=== PATIENT | male | born 1970 | race Two or more races ===

== ENCOUNTER 2024-06-30 09:42 | Emergency (ER) | payer OTHER, SELFPAY ==
[~2024-06-30] VITALS: Ht 157.5 cm; Wt 82.2 kg
[2024-06-30 10:10] VITALS: BP 123/93; PULSE 77; RESP 18; TEMP 98.7; O2SAT 96
--- NOTE | 2024-06-30 10:15 | DVH ---
XY CHEST TWO VIEWS ROUTINE CLINICAL HISTORY: PRODUCTIVE COUGH COMPARISON: None TECHNIQUE: Frontal and lateral view of the chest was obtained FINDINGS: Lines and Tubes: None Lungs: No focal consolidation. Pleura: No effusion. No pneumothorax. Cardiomediastinal contours: Unremarkable Bones: No acute osseous abnormality. IMPRESSION: No acute cardiopulmonary disease.
--- NOTE | 2024-06-30 11:07 | ED.PDOC ---
SOB-HPI HPI Comments 53 year old male presents to the ED with chief complaint of flu-like illness. Patient reports that he has been experiencing SOB with associated cough, nasal congestion, fever, and body aches for the past 2 weeks. Patient relays that he has only been taking Motrin and NyQuil, has no PCP for follow up. Patient denies any chest pain, dizziness, headache, chills, abdominal pain, or N/V/D. Chief Complaint: Flu like Time Seen by MD: 11:02 Primary Care Provider: DENIES Reviewed notes: Nurses Notes, Medications, Allergies Information Source: Patient, Relative (Child) Mode of Arrival: Ambulatory Severity: Moderate Timing: Weeks Duration: Since onset Context: At Rest PE Risk Factors: None History of: None Prehospital treatment: None Modifying Factors: Nothing Associated Signs and Symptoms: Fever, Cough, Nasal Congestion If cough with SOB: Productive, Yellow, Green Past Medical History PAST MEDICAL HISTORY: Denies Surgical History: Denies all surgeries Family History Family History: Reviewed,noncontributory to illness Social History Smoker: Non-Smoker Alcohol: Denies ETOH Use Drugs: Denies Drug Use Lives In: Home Constitutional: reports: fever, others (Body aches); denies: chills, diaphoresis, fatigue, malaise, sweats, weakness EENTM: reports: nose congestion; denies: blurred vision, double vision, ear bleeding, ear discharge, ear drainage, ear pain, ear ringing, eye pain, eye redness, hearing loss, mouth pain, mouth swelling, nasal discharge, nose bleeding, nose pain, photophobia, tearing, throat pain, throat swelling, voice changes, others Respiratory: reports: cough, shortness of breath; denies: hemoptysis, orthopnea, SOB at rest, SOB with excertion, stridor, wheezing, others Cardiovascular: denies: chest pain, dizzy spells, diaphoresis, Dyspnea on exertion, edema, irregular heart beat, left arm pain, lightheadedness, palpitations, PND, syncope, others Gastrointestinal: denies: abdomen distended, abdominal pain, blood streaked bowels, constipated, diarrhea, dysphagia, difficulty swallowing, hematemesis, melena, nausea, poor appetite, poor fluid intake, rectal bleeding, rectal pain, vomiting, others Genitourinary: denies: burning, dysuria, flank pain, frequency, hematuria, incontinence, penile discharge, penile sore, pain, testicle pain, testicle swelling, urgency, others Neurological: denies: dizziness, fainting, headache, left sided numbness, left sided weakness, numbness, paresthesia, pre-existing deficit, right sided numbness, right sided weakness, seizure, speech problems, tingling, tremors, weakness, others Musculoskeletal: denies: back pain, gout, joint pain, joint swelling, muscle pain, muscle stiffness, neck pain, others Integumetry: denies: bruises, change in color, change in hair/nails, dryness, laceration, lesions, lumps, rash, wounds, others Allergic/Immunocompromised: denies: Difficulty Healing, Frequent Infections, Hives, Itching, others Hematologic/Lymphatic: denies: anemia, blood clots, easy bleeding, easy bruising, swollen glands, others Endocrine: denies: excessive hunger, excessive sweating, excessive thirst, excessive urination, flushing, intolerance to cold, intolerance to heat, unexplained weight gain, unexplained weight loss, others Psychiatric: denies: anxiety, bipolar disorder, depression, hopeless, panic disorder, schizophrenia, sleepless, suicidal, others All Other Systems: Reviewed and Negative Physical Exam General Appearance: Moderate Distress, Normal HEENT: Normal ENT Inspection, PERRL/EOMI, Pharynx Normal, TMs Normal Neck: Full Range of Motion, Non-Tender, Normal, Normal Inspection Respiratory: Chest Non-Tender, Lungs Clear, No Accessory Muscle Use, No Re spiratory Distress, Normal Breath Sounds Cardiovascular: No Edema, No JVD, No Murmur, No Gallop, Normal Peripheral Pulses, Regular Rate/Rhythm Breast Exam: Deferred Gastrointestinal: No Organomegaly, Non Tender, No Pulsatile Mass, Normal Bowel Sounds, Soft Genitalia: Deferred Pelvic: Deferred Rectal: Deferred Extremities: No calf tenderness, Normal capillary refill, Normal inspection, Normal range of motion, Non-tender, No pedal edema Musculoskeletal : Apperance: Normal Neurologic: Alert, engineer exhauster II-XII nml as Tested, No Motor Deficits, Normal Affect, Normal Mood, No Sensory Deficits Cerebellar Function: Normal Reflexes: Normal Skin: Dry, Normal Color, Warm Peripheral Pulses: 3+ Radial (R), 3+ Radial (L) Lymphatic: No Adenopathy Was a procedure done? Was a procedure done?: No Differential Dx Differential Diagnosis: Anxiety, Asthma, Bronchitis, Pneumonia, URI X-Ray, Labs, Meds, VS Vital Signs Date Time Temp Pulse Resp B/P (MAP) Pulse Ox O2 Delivery O2 Flow Rate FiO2 06/30/24 10:10 77 18 96 Room Air 06/30/24 10:10 98.7 77 18 123/93 (103) 96 98.7 06/30/24 09:57 18 96 Room Air* 0 21 06/30/24 09:50 98.7 77 18 123/93 (103) 96 Lab Test 06/30/24 12:22 Range/Units Influenza Type A Antigen Positive Negative Influenza Type B Antigen Negative Negative SARS-CoV-2 Antigen (Rapid) Negative NEGATIVE Current Medications Medications (Trade) Dose Ordered Sig/Olivier Route Start Time Stop Time Status Last Admin Ceftriaxone Sodium (Rocephin) 1,000 mg ONCE ONCE IM 06/30/24 11:15 06/30/24 11:16 DC 06/30/24 11:41 Chest XR: FINDINGS: Lines and Tubes: None Lungs: No focal consolidation. Pleura: No effusion. No pneumothorax. Cardiomediastinal contours: Unremarkable Bones: No acute osseous abnormality. IMPRESSION: No acute cardiopulmonary disease. Patient alert. Nasal congestion. Vitals stable. Answering all questions. Chest x-ray reviewed does not show any acute process. Able to take deep breaths. Denies chest pain. Abdomen is soft nontender. No leg swelling. No shortness a breath. Congestion. Was given prescription Augmentin antibiotic. Explained to the patient. Was told to follow up with his primary care physician. Was told to come back if there is any problem. Time of 1ST Reevaluation: 12:02 Reevaluation 1ST: Improved Patient Education/Counseling: Diagnosis, Treatment Family Education/Counseling: Diagnosis, Treatment Additional Information I reviewed the following notes from patient's past medical encounters: None The following tests were ordered, and results were reviewed by me: Chest XR Additional Information was gathered from interviewing the following independent historians: Daughter I reviewed and agreed with the following test results read by other providers: CXR I discussed treatment and results with medical personnel and family. Departure 1 Departure Time of Disposition: 11:14 Impression: Primary Impression: Upper respiratory tract infection Qualified Codes: J06.9 - Acute upper respiratory infection, unspecified Disposition: 01 HOME / SELF CARE / HOMELESS Condition: Good e-Prescriptions Prednisone (Prednisone) 10 Mg Tab 10 MG PO DAILY for 7 Days, #7 MG Prov: SELWYN HAMEED MD 06/30/24 Amoxicillin & Pot Clavulanate (AUGMENTIN TABLET) 875 Mg Tb 875 MG PO BID for 7 Days, #14 TAB Prov: SELWYN HAMEED MD 06/30/24 Discharged With: Self Critical Care Note Critical Care Time?: No Stability Stability form required: No Heart Score Heart Score: Heart Score Response (Comments) Value History N/A 0 EKG N/A 0 Age N/A 0 Risk Factors N/A 0 Troponin N/A 0 Total 0 I personally scribed for SELWYN HAMEED MD ([email or web address]) on 06/30/24 at 11:07. Electronically submitted by Richard Aldana ([email or web address]). I personally scribed for SELWYN HAMEED MD ([email or web address]) on 06/30/24 at 11:07. Electronically submitted by Richard Aldana ([email or web address]). SELWYN HAMEED MD Jun 30, 2024 11:07
[2024-06-30] MEDS ORDERED: AUG875T PO (11:15)
[2024-06-30] MEDS: cefTRIAXone SOD 1,000 MG VL IM ONE (11:41)
[2024-06-30 13:33] LABS: COVID19 ANTIGEN SOFIA FIA NEGATIVE (NEGATIVE)
[2024-06-30] MEDS ORDERED: PRED10TA PO (13:41)
[2024-06-30 13:46] LABS: Rapid Influenza A Positive (Negative); Rapid Influenza B Negative (Negative)
== END 2024-06-30 13:38 | disposition home or self-care (01) ==
LOC: ER 09:42
DX: J06.9 Acute upper respiratory infection, unspecified (principal); R50.9 Fever, unspecified; R05.9 Cough, unspecified; R09.81 Nasal congestion; R06.02 Shortness of breath; Z20.822 Contact with and (suspected) exposure to COVID-19
CPT/HCPCS: 36415; 71046; 87426; 87804; 96372; 99284; J0696

== ENCOUNTER 2025-01-21 21:17 | Emergency (ER) | payer MEDICAID, SELFPAY ==
[~2025-01-21] VITALS: Ht 165.1 cm; Wt 80.7 kg
[2025-01-21] MEDS: SODIUM CHLORIDE 0.9% 1,000 ML IV ONE (00:35)
[2025-01-21] MEDS: MORPHINE SULFATE 4 MG/ML SYR/VIAL IV ONE (00:35)
[~2025-01-21 21:17] MED LIST: AUG875T PO; PRED10TA PO
[2025-01-21 22:59] LABS: Hematocrit 48.4 % (41.0-53.0); Hemoglobin 16.6 g/dL (13.5-17.5); Mean Corpuscular Hemoglobin 29.7 pg (28.0-32.0); Mean Corpuscular Volume 86.4 fL (80.0-100.0); Nucleated Red Blood Cells % 0.0 %
--- NOTE | 2025-01-21 23:14 | DVH ---
CT SCAN ABDOMEN AND PELVIS WITHOUT CONTRAST CLINICAL HISTORY: abd pain n/v TECHNIQUE: Helical axial images are obtained from the lung bases through the pelvis without oral cont rast. No intravenous contrast was administered. Coronal and sagittal reformatted images were generate d from thin section reconstructions. One or more of the following radiation dose reduction techniques were used for this examination: automated exposure control, adjustment of the mA and/or kV according to patient size, use of iterative reconstruction technique. COMPARISON: None FINDINGS: LOWER THORAX: Dependent atelectatic changes. ABDOMEN AND PELVIS: Evaluation of visceral and vascular structures is limited due to lack of contrast administration. As visualized, the unenhanced liver, spleen, pancreas and adrenals appear grossly unremarkable. No si zable, radiopaque cholelithiasis or biliary ductal dilatation. No hydroureteronephrosis or sizable, obstructing urinary tract calculi identified. No evidence of abdominal aortic aneurysm. Mild thickening of the proximal and mid small bowel which demonstrates fluid content. No other eviden ce to suggest obstruction at this time. The appendix is not identified, however, no pericecal inflamm atory changes are noted. No free intraperitoneal air or fluid identified. No sizable bladder calculus. No destructive osseous lesions identified. Multilevel degenerative changes of the lumbar spine. IMPRESSION: Thickening of the proximal and mid small bowel suggests enteritis. Recommend follow-up to resolution.
[2025-01-21 23:22] LABS: Albumin 4.7 g/dL (3.2-4.8); Alkaline Phosphatase 100 U/L (46-116); Anion Gap 10 (5-15); BUN/Creatinine Ratio 22.5 (10.0-20.0); Blood Urea Nitrogen 20 mg/dL (9-23); Calcium 9.4 mg/dL (8.7-10.4); Carbon Dioxide 27 mmol/L (20-31); Chloride 103 mmol/L (98-107); Lipase 53 U/L (12-53); Sodium 140 mmol/L (136-145); Total Protein 7.7 g/dL (5.7-8.2)
[2025-01-21 23:23] LABS: Bilirubin, Total 1.0 mg/dL (0.2-1.0)
[2025-01-21 23:24] LABS: Alanine Aminotransferase 40 U/L (7-40); Glucose 107 mg/dL (74-106); Potassium 3.5 mmol/L (3.5-5.1)
[2025-01-22 00:16] VITALS: BP 148/97; TEMP 97.7
[2025-01-22 00:17] VITALS: PULSE 70; RESP 18; O2SAT 96
[2025-01-22] MEDS: PANTOPRAZOLE 40 MG/10 ML VIAL INJ IV ONE (00:34)
[2025-01-22] MEDS: ONDANSETRON HCL 4 MG/2 ML VIAL IV ONE (00:34)
[2025-01-22] MEDS ORDERED: ACET-1304 PO (01:27)
[2025-01-22] MEDS ORDERED: METR-344 PO (01:27)
[2025-01-22] MEDS ORDERED: ZOFR4T PO (01:27)
[2025-01-22] MEDS ORDERED: CIPR-173 PO (01:27)
[2025-01-22] MEDS ORDERED: DICY10CA PO (01:27)
--- NOTE | 2025-01-22 01:27 | ED.PDOC ---
GI ASSESSMENT HPI Comments 54-year-old male with a history of UTIs brought in by family complaining of mid abdominal pain, nausea and vomiting since yesterday. Patient characterizes the pain as sharp, constant, no particular exacerbating or alleviating factors. He denies any fever, diarrhea, constipation or dysuria. Chief Complaint: Abdominal Pain Time Seen by MD: 01:26 Primary Care Provider: DENIES Reviewed Notes: Nurses Notes Allergies: Coded Allergies: NO KNOWN ALLERGIES (Unverified , 06/30/24) Home Meds Active Scripts Acetaminophen (Tylenol Extra Strength) 500 Mg Tab, 1000 MG PO Q6HP PRN, #30 TAB Prn pain Prov:LALA KIMBALL MD 01/22/25 Dicyclomine Hcl (BENTYL CAPSULE) 10 Mg Cp, 2 CAP PO Q6HP PRN, #30 CAP 11 Refills Prn abdominal pain Prov:LALA KIMBALL MD 01/22/25 Ondansetron Odt 4MG Tab (ZOFRAN PO) 4 Mg Tb, 4 MG PO TID PRN, #30 TAB Prn nausea/vomiting ODT TAB-DISSOLVE IN MOUTH, THEN SWALLOW Prov:LALA KIMBALL MD 01/22/25 Metronidazole (Flagyl) 500 Mg Tab, 1 TAB PO TID for 10 Days, #30 TAB Prov:LALA KIMBALL MD 01/22/25 Ciprofloxacin Hcl (Cipro) 500 Mg Tab, 1 TAB PO BID for 10 Days, #20 TAB Prov:LALA KIMBALL MD 01/22/25 Prednisone (Prednisone) 10 Mg Tab, 10 MG PO DAILY for 7 Days, #7 MG Prov:SELWYN HAMEED MD 06/30/24 Amoxicillin & Pot Clavulanate (AUGMENTIN TABLET) 875 Mg Tb, 875 MG PO BID for 7 Days, #14 TAB Prov:SELWYN HAMEED MD 06/30/24 Information Source: Patient Mode of Arrival: Ambulatory Timing: Hours Duration: Intermittent Quality: Aching, Cramping Vomitus: Watery Stool: Normal Severity: Moderate Past Medical History PAST MEDICAL HISTORY: UTI'S Surgical History: Denies all surgeries Family History Family History: Reviewed,noncontributory to illness Social History Smoker: Non-Smoker Alcohol: Denies ETOH Use Drugs: Denies Drug Use Lives In: Home Constitutional: denies: chills, diaphoresis, fatigue, fever, malaise, sweats, weakness, others EENTM: denies: blurred vision, double vision, ear bleeding, ear discharge, ear drainage, ear pain, ear ringing, eye pain, eye redness, hearing loss, mouth pain, mouth swelling, nasal discharge, nose bleeding, nose congestion, nose pain, photophobia, tearing, throat pain, throat swelling, voice changes, others Cardiovascular: denies: chest pain, dizzy spells, diaphoresis, Dyspnea on exertion, edema, irregular heart beat, left arm pain, lightheadedness, palpitations, PND, syncope, others Gastrointestinal: reports: abdominal pain, nausea, vomiting; denies: abdomen distended, blood streaked bowels, constipated, diarrhea, dysphagia, difficulty swallowing, hematemesis, melena, poor appetite, poor fluid intake, rectal bleeding, rectal pain, others Genitourinary: denies: burning, dysuria, flank pain, frequency, hematuria, incontinence, penile discharge, penile sore, pain, testicle pain, testicle swelling, urgency, others Neurological: denies: dizziness, fainting, headache, left sided numbness, left sided weakness, numbness, paresthesia, pre-existing deficit, right sided numbness, right sided weakness, seizure, speech problems, tingling, tremors, weakness, others Musculoskeletal: denies: back pain, gout, joint pain, joint swelling, muscle pa in, muscle stiffness, neck pain, others Integumetry: denies: bruises, change in color, change in hair/nails, dryness, laceration, lesions, lumps, rash, wounds, others Allergic/Immunocompromised: denies: Difficulty Healing, Frequent Infections, Hives, Itching, others Hematologic/Lymphatic: denies: anemia, blood clots, easy bleeding, easy bruising, swollen glands, others Endocrine: denies: excessive hunger, excessive sweating, excessive thirst, excessive urination, flushing, intolerance to cold, intolerance to heat, unexplained weight gain, unexplained weight loss, others Psychiatric: denies: anxiety, bipolar disorder, depression, hopeless, panic disorder, schizophrenia, sleepless, suicidal, others All Other Systems: Reviewed and Negative (Comprehensive systems review obtained and negative except for what is stated in the HPI.) Physical Exam General Appearance: No Apparent Distress HEENT: Other (Pupils and face symmetric. Moist mucous membranes.) Neck: Full Range of Motion, Normal Inspection Respiratory: Lungs Clear, No Accessory Muscle Use, No Respiratory Distress, Normal Breath Sounds Cardiovascular: No Edema, No JVD, Regular Rate/Rhythm Breast Exam: Deferred Gastrointestinal: Soft, Tenderness (Mid abdominal tenderness to palpation. No rebound or guarding.) Genitalia: Deferred Pelvic: Deferred Rectal: Deferred Extremities: Normal inspection, Normal range of motion, Non-tender, No pedal edema Neurologic: Alert (Oriented x4), Normal Affect, Normal Mood, Other (Ambulatory) Cerebellar Function: NOT DONE Reflexes: NOT DONE Skin: Dry, Normal Color, Warm Lymphatic: NOT DONE Was a procedure done? Was a procedure done?: No GI differential Dx Differential Diagnosis: Cholecystitis, Constipation, Diverticular disease, G astritis/PUD, Gastroenteritis, Inflammatory BD, Pancreatitis, UTI, Dehydration, Electrolyte Imbalance, Bacterial, Viral, Hypovolemia, Renal Failure, Stress Ulcer X-Ray, Labs, Meds, VS Vital Signs Date Time Temp Pulse Resp B/P (MAP) Pulse Ox O2 Delivery O2 Flow Rate FiO2 01/22/25 00:17 70 18 96 Room Air* 0 21 01/22/25 00:16 97.7 70 18 148/97 (114) 96 97.7 01/21/25 21:19 98.4 80 17 135/86 93 98.4 Lab Test 01/21/25 22:37 Range/Units White Blood Count 12.2 H 4.4-10.8 10^3/uL Red Blood Count 5.60 4.5-5.90 10^6/uL Hemoglobin 16.6 13.5-17.5 g/dL Hematocrit 48.4 41.0-53.0 % Mean Corpuscular Volume 86.4 80.0-100.0 fL Mean Corpuscular Hemoglobin 29.7 28.0-32.0 pg Mean Corpuscular Hemoglobin Concent 34.4 32.0-36.0 g/dL Red Cell Distribution Width 12.8 11.8-14.3 % Platelet Count 251 140-450 10^3/uL Mean Platelet Volume 9.3 6.9-10.8 fL Neutrophils (%) (Auto) 57.1 37.0-80.0 % Lymphocytes (%) (Auto) 26.3 10.0-50.0 % Monocytes (%) (Auto) 14.0 H 0.0-12.0 % Eosinophils (%) (Auto) 2.0 0.0-7.0 % Basophils (%) (Auto) 0.6 0.0-2.0 % Neutrophils # (Auto) 7.0 1.6-8.6 10 ^3/uL Lymphocytes # (Auto) 3.2 0.4-5.4 10 ^3/uL Monocytes # (Auto) 1.7 H 0-1.3 10 ^3/uL Eosinophils # (Auto) 0.2 0-0.8 10 ^3/uL Basophils # (Auto) 0.1 0-0.2 10 ^3/uL Nucleated Red Blood Cells 0.0 % Sodium Level 140 136-145 mmol/L Potassium Level 3.5 3.5-5.1 mmol/L Chloride Level 103 98-107 mmol/L Carbon Dioxide Level 27 20-31 mmol/L Anion Gap 10 5-15 Blood Urea Nitrogen 20 9-23 mg/dL Creatinine 0.89 0.700-1.30 mg/dL Glomerular Filtration Rate Calc 101 >90 mL/min BUN/Creatinine Ratio 22.5 H 10.0-20.0 Serum Glucose 107 H 74-106 mg/dL Calcium Level 9.4 8.7-10.4 mg/dL Total Bilirubin 1.0 0.2-1.0 mg/dL Aspartate Amino Transferase (AST) 23 13-40 U/L Alanine Aminotransferase (ALT) 40 7-40 U/L Alkaline Phosphatase 100 46-116 U/L Troponin I High Sensitivity < 3 L </=54 ng/L Total Protein 7.7 5.7-8.2 g/dL Albumin 4.7 3.2-4.8 g/dL Lipase 53 12-53 U/L Current Medications Medications (Trade) Dose Ordered Sig/Olivier Route Start Time Stop Time Status Last Admin Sodium Chloride 1,000 ml @ 1,000 mls/hr Q1H ONCE IV 01/21/25 22:15 01/21/25 23:14 DC 01/21/25 00:35 Ondansetron HCl (Zofran) 4 mg ONCE ONCE IV 01/21/25 22:15 01/21/25 22:17 DC 01/22/25 00:34 Pantoprazole Sodium (Protonix) 40 mg ONCE ONCE IV 01/21/25 22:15 01/21/25 22:17 DC 01/22/25 00:34 PROCEDURE(s): ABPL - CT AB PEL WO CON-NO ORAL OR IV REASON: abd pain n/v ORDER NUMBER(s): [id number], ACCESSION NUMBER(s): [id number] CT SCAN ABDOMEN AND PELVIS WITHOUT CONTRAST CLINICAL HISTORY: abd pain n/v TECHNIQUE: Helical axial images are obtained from the lung bases through the pelvis without oral contrast. No intravenous contrast was administered. Coronal and sagittal reformatted images were generated from thin section reconstructions. One or more of the following radiation dose reduction techniques were used for this examination: automated exposure control, adjustment of the mA and/or kV according to patient size, use of iterative reconstruction technique. COMPARISON: None FINDINGS: LOWER THORAX: Dependent atelectatic changes. ABDOMEN AND PELVIS: Evaluation of visceral and vascular structures is limited due to lack of contrast administration. As visualized, the unenhanced liver, spleen, pancreas and adrenals appear grossly unremarkable. No sizable, radiopaque cholelithiasis or biliary ductal dilatation. No hydroureteronephrosis or sizable, obstructing urinary tract calculi identified. No evidence of abdominal aortic aneurysm. Mild thickening of the proximal and mid small bowel which demonstrates fluid content. No other evidence to suggest obstruction at this time. The appendix is not identified, however, no pericecal inflammatory changes are noted. No free intraperitoneal air or fluid identified. No sizable bladder calculus. No destructive osseous lesions identified. Multilevel degenerative changes of the lumbar spine. IMPRESSION: Thickening of the proximal and mid small bowel suggests enteritis. Recommend follow-up to resolution. X-Ray, Labs, Meds, VS Comment 54-year-old male with a history of UTIs complaining of abdominal pain, nausea and vomiting Vitals remarkable for initial oxygen saturation of 93% on room air. Repeat oxygen saturation after treatment was 96% on room air which is normal Exam remarkable for mid abdominal tenderness to palpation Rhythm strip independently interpreted by me: Sinus rhythm, rate 80, no ectopy. CT abdomen and pelvis IMPRESSION: Thickening of the proximal and mid small bowel suggests enteritis. Recommend follow-up to resolution. CBC remarkable for WBC 12.2, CMP unremarkable, lipase normal, troponin negative Patient treated with the following in the ED: 1 L 0.9 normal saline IV bolus, Toradol 30 mg IV, Protonix 40 mg IV, Zofran 4 mg IV On re-evaluation, abdominal pain has improved. Patient is tolerating p.o. fluids. Vitals were stable. Hospitalization was considered, however patient had rapid improvement of symptoms with treatment in the ED, and I no longer feel hospitalization is necessary. Patient now appears stable for discharge with close outpatient follow-up with his primary physician. Rx Cipro, Flagyl, Zofran, Bentyl, Tylenol Time of 1ST Reevaluation: 01:26 Reevaluation 1ST: Unchanged Patient Education/Counseling: Diagnosis, Treatment Family Education/Counseling: No Family Present SEPSIS Sepsis Screen Date sepsis recognized/suspect: Jan 21, 2025 Time Sepsis recognized/suspect: 2118 Recent Procedure: No On Antibiotic Therapy: No Respiratory Rate >20: No Heart Rate >90: No Temp<36 C (96.8 F) or >38.3 C: No SBP <90 or MAP <65 mmHG: No New Acute Mental Status Change: No Is the patient on CPAP, BIPAP,: No Physician Orders Urinalysis (01/21/25 22:15) Ct Ab Pel Wo Con-No Oral Or Iv (01/21/25 22:15) Ketorolac Injection (Toradol Injection) (01/22/25 01:30) Vital Signs Date Time Temp Pulse Resp B/P (MAP) Pulse Ox O2 Delivery O2 Flow Rate FiO2 01/22/25 00:17 70 18 96 Room Air* 0 21 01/22/25 00:16 97.7 70 18 148/97 (114) 96 97.7 01/21/25 21:19 98.4 80 17 135/86 93 98.4 Laboratory Tests Test 01/21/25 22:37 White Blood Count 12.2 10^3/uL (4.4-10.8) H Medications Medications Dose Ordered Sig/Olivier Route Start Time Stop Time Status Last Admin Dose Admin Ondansetron HCl 4 mg ONCE ONCE IV 01/21/25 22:15 01/21/25 22:17 DC 01/22/25 00:34 Pantoprazole Sodium 40 mg ONCE ONCE IV 01/21/25 22:15 01/21/25 22:17 DC 01/22/25 00:34 Sodium Chloride 1,000 ml @ 1,000 mls/hr Q1H ONCE IV 01/21/25 22:15 01/21/25 23:14 DC 01/21/25 00:35 Departure 1 Departure Time of Disposition: 01:32 Impression: Primary Impression: Abdominal pain Additional Impression: Nausea and vomiting Disposition: HOME / SELF CARE / HOMELESS Condition: Stable Additional Instructions: Your blood tests were unremarkable except for a mildly elevated white blood cell count, which can be seen with infections. Your CT scan showed possible enteritis, which can be caused by intestinal infections. I have prescribed antibiotics, pain medication and medication for nausea. Follow-up with your primary doctor in 1-2 days. Return to ER for persistent or worsening symptoms. [place] [id number] Ph: [phone] DIAGNOSTIC IMAGING Diagnostic Imaging Report : [id number] Signed PATIENT: BE LAGOS ACCT: [id number] UNIT: [id number] : 1970 LOC: ER ROOM / BED: / AGE / SEX: 54 / M ADM STATUS: REG ER SERVICE 14 ORDERING PHYSICIAN: LALA KIMBALL MD PROCEDURE(s): ABPL - CT AB PEL WO CON-NO ORAL OR IV REASON: abd pain n/v ORDER NUMBER(s): [id number], ACCESSION NUMBER(s): [id number] CT SCAN ABDOMEN AND PELVIS WITHOUT CONTRAST CLINICAL HISTORY: abd pain n/v TECHNIQUE: Helical axial images are obtained from the lung bases through the pelvis without oral contrast. No intravenous contrast was administered. Coronal and sagittal reformatted images were generated from thin section reconstructions. One or more of the following radiation dose reduction techniques were used for this examination: automated exposure control, adju stment of the mA and/or kV according to patient size, use of iterative reconstruction technique. COMPARISON: None FINDINGS: LOWER THORAX: Dependent atelectatic changes. ABDOMEN AND PELVIS: Evaluation of visceral and vascular structures is limited due to lack of contrast administration. As visualized, the unenhanced liver, spleen, pancreas and adrenals appear grossly unremarkable. No sizable, radiopaque cholelithiasis or biliary ductal dilatation. No hydroureteronephrosis or sizable, obstructing urinary tract calculi identified. No evidence of abdominal aortic aneurysm. Mild thickening of the proximal and mid small bowel which demonstrates fluid content. No other evidence to suggest obstruction at this time. The appendix is not identified, however, no pericecal inflammatory changes are noted. No free intraperitoneal air or fluid identified. No sizable bladder calculus. No destructive osseous lesions identified. Multilevel degenerative changes of the lumbar spine. IMPRESSION: Thickening of the proximal and mid small bowel suggests enteritis. Recommend follow-up to resolution. e-Prescriptions Acetaminophen (Tylenol Extra Strength) 500 Mg Tab 1000 MG PO Q6HP PRN, #30 TAB Prn pain Prov: LALA KIMBALL MD 01/22/25 Dicyclomine Hcl (BENTYL CAPSULE) 10 Mg Cp 2 CAP PO Q6HP PRN, #30 CAP 11 Refills Prn abdominal pain Prov: LALA KIMBALL MD 01/22/25 Ondansetron Odt 4MG Tab (ZOFRAN PO) 4 Mg Tb 4 MG PO TID PRN, #30 TAB Prn nausea/vomiting ODT TAB-DISSOLVE IN MOUTH, THEN SWALLOW Prov: LALA KIMBALL MD 01/22/25 Metronidazole (Flagyl) 500 Mg Tab 1 TAB PO TID for 10 Days, #30 TAB Prov: LALA KIMBALL MD 01/22/25 Ciprofloxacin Hcl (Cipro) 500 Mg Tab 1 TAB PO BID for 10 Days, #20 TAB Prov: LALA KIMBALL MD 01/22/25 Discharged With: Spouse Critical Care Note Critical Care Time?: No Stability Stability form required: No Heart Score Heart Score: Heart Score Response (Comments) Value History N/A 0 EKG N/A 0 Age N/A 0 Risk Factors N/A 0 Troponin N/A 0 Total 0 I personally scribed for LALA KIMBALL MD ([email or web address]) on 01/22/25 at 01:27. Electronically submitted by Uri Sanchez ([email or web address]). LALA KIMBALL MD Jan 22, 2025 01:27
[2025-01-22] MEDS: KETOROLAC TROMETH 30 MG/ML 1ML VIAL IV ONE (01:33)
== END 2025-01-22 01:44 | disposition home or self-care (01) ==
LOC: ER 21:17
DX: R10.9 Unspecified abdominal pain (principal); R11.2 Nausea with vomiting, unspecified; Z87.440 Personal history of urinary (tract) infections
CPT/HCPCS: 36415; 74176; 80053; 83690; 84484; 85025; 96361; 96374; 96375; 99285; J1885; J2405; J2470; J7030